=== PATIENT | female | born 1985 | race Hispanic/Latino ===

== ENCOUNTER 2017-11-23 08:38 | Inpatient (IN) | payer BC ==
--- OUTSIDE RECORDS SUMMARY | 2017-11-23 08:43 | XMS REPORT ---
:1985 Author Organization e[employer] Care Team Providers Name Role Phone Daljit Briscoe Provider Role Unavailable Allergies No Known Allergies Problems Problem Type Condition Code Onset Dates Condition Status Assessment Encounter for care or examination of Z39.1 Active lactating mother Problem Supervision of high risk O09.91 Active in first trimester Assessment Encounter for care of Z39.1 Active lactating mother Problem Surrogate in third Z33.3 Active trimester Problem Supervision of high risk O09.93 Active in third trimester Problem Encounter for care or examination of Z39.1 Active lactating mother Problem Subacute vaginitis N76.1 Active Problem Encounter for care in first Z34.01 Active trimester of first Problem Supervision of high risk O09.92 Active in second trimester Problem Encounter for supervision of other Z34.82 Active normal , second trimester Medications Medication Code System Code Instructions Start Date End Date Status Dosage Breast Pump [facility] 46234915216 - October 19, Active as directed 2018 Results No Known Results Summary Purpose [email or web address] Submission
--- OUTSIDE RECORDS SUMMARY | 2017-11-23 08:43 | XMS REPORT ---
:1985 Author Organization [employer] Care Team Providers Name Role Phone Daljit Briscoe Provider Role Unavailable Allergies No Known Allergies Problems Problem Type Condition Code Onset Dates Condition Status Assessment Surrogate in third Z33.3 Active trimester Assessment Supervision of high risk O09.93 Active in third trimester Problem Surrogate in third Z33.3 Active trimester Problem Supervision of high risk O09.92 Active in second trimester Problem Supervision of high risk O09.93 Active in third trimester Problem Encounter for care in first Z34.01 Active trimester of first Problem Supervision of high risk O09.91 Active in first trimester Problem Encounter for supervision of other Z34.82 Active normal , second trimester Problem Subacute vaginitis N76.1 Active Medications Medication Code Code Instructions Start End Status Dosage System Date Date Diflucan NDC 86762528261 150 MG Orally Active 1 tablet Once a day DHA NDC 0 Active not defined Diflucan NDC 71253262691 150 MG Orally Active 1 tablet Once a day Breast Pump ND 13136039292 - Active as directed Results No Known Results Summary Purpose [employer]ClinicalWorks Submission
--- OUTSIDE RECORDS SUMMARY | 2017-11-23 08:43 | XMS REPORT ---
:1985 Author Organization [employer] Care Team Providers Name Role Phone Daljit Briscoe Provider Role Unavailable Allergies, Adverse Reactions, Alerts Substance Reaction Event Type N.K.D.A. Info Not Available Non Drug Allergy Problems Problem Type Condition Code Onset Dates Condition Status Assessment Subacute vaginitis N76.1 Active Problem Surrogate in first Z33.3 Active trimester Problem Encounter for care in first Z34.01 Active trimester of first Problem Subacute vaginitis N76.1 Active Assessment Surrogate in first Z33.3 Active trimester Assessment Supervision of high risk O09.91 Active in first trimester Problem Supervision of high risk O09.91 Active in first trimester Assessment Encounter for care in first Z34.01 Active trimester of first Medications Medication Code Code Instructions Start End Date Status Dosage System Date Diflucan NDC 49581777802 150 MG Orally Active 1 tablet Once a day DHA NDC 0 Active not defined Results No Known Results Summary Purpose [employer]ClinicalWorks Submission
--- OUTSIDE RECORDS SUMMARY | 2017-11-23 08:43 | XMS REPORT ---
:1985 Author Organization [employer] Care Team Providers Name Role Phone Daljit Briscoe Provider Role Unavailable Allergies, Adverse Reactions, Alerts Substance Reaction Event Type N.K.D.A. Info Not Available Non Drug Allergy Problems Problem Type Condition Code Onset Dates Condition Status Assessment Surrogate in second Z33.3 Active trimester Assessment Supervision of high risk O09.92 Active in second trimester Problem Encounter for supervision of other Z34.82 Active normal , second trimester Problem Surrogate in second Z33.3 Active trimester Problem Supervision of high risk O09.92 Active in second trimester Problem Supervision of high risk O09.91 Active in first trimester Assessment Encounter for supervision of other Z34.82 Active normal , second trimester Problem Subacute vaginitis N76.1 Active Problem Encounter for care in first Z34.01 Active trimester of first Medications Medication Code Code Instructions Start End Status Dosage System Date Date Breast Pump [facility] 88536601873 - August 27, Active as directed 2017 Diflucan [facility] 05339266654 150 MG Orally Active 1 tablet Once a day DHA NDC 0 Active not defined Results No Known Results Summary Purpose [employer]ClinicalWorks Submission
--- OUTSIDE RECORDS SUMMARY | 2017-11-23 08:43 | XMS REPORT ---
[...] Date Status Dosage System Date Diflucan NDC 27582546837 150 MG Orally Active 1 tablet Once a day DHA NDC 0 Active not defined Results No Known Results Summary Purpose [employer]ClinicalWorks Submission
--- OUTSIDE RECORDS SUMMARY | 2017-11-23 08:43 | XMS REPORT ---
:1985 Author Organization [employer] Care Team Providers Name Role Phone Daljit Briscoe Provider Role Unavailable Allergies No Known Allergies Problems Problem Type Condition Code Onset Dates Condition Status Assessment Supervision of high risk O09.93 Active in third trimester Assessment Surrogate in third Z33.3 Active trimester Problem Surrogate in third Z33.3 Active [...] Status Dosage System Date Date Breast Pump NDC 03355430375 - Active as directed DHA NDC 0 Active not defined Diflucan NDC 87835800905 150 MG Orally Active 1 tablet Once a day Diflucan NDC 45693274524 150 MG Orally Active 1 tablet Once a day Results No Known Results Summary Purpose eClinicalWorks Submission
--- OUTSIDE RECORDS SUMMARY | 2017-11-23 08:43 | XMS REPORT ---
:1985 Author Organization eClinicalWorks Care Team Providers Name Role Phone Daljit Briscoe Provider Role Unavailable Allergies No Known Allergies Problems Problem Type Condition Code Onset Dates Condition Status Problem Encounter for care in first Z34.01 Active trimester of first Problem Supervision of high risk O09.91 Active in first trimester Assessment Surrogate in third Z33.3 Active trimester Assessment Supervision of high risk O09.93 Active in third trimester Assessment Need for Tdap vaccination Z23 Active Problem Need for Tdap vaccination Z23 Active Problem Surrogate in third Z33.3 Active trimester Problem Encounter for care or examination of Z39.1 Active lactating mother Problem Encounter for supervision of other Z34.82 Active normal , second trimester Problem Subacute vaginitis N76.1 Active Problem Supervision of high risk O09.93 Active in third trimester Problem Supervision of high risk O09.92 Active in second trimester Medications Medication Code Code Instructions Start End Status Dosage System Date Date DHA NDC 0 Active not defined Diflucan NDC 16926225841 150 MG Orally Active 1 tablet Once a day Diflucan NDC 97783102582 150 MG Orally Active 1 tablet Once a day Breast Pump NDC 76745729166 - October 19 Active as directed 2018 Breast Pump NDC 76565579891 - Active as directed Results No Known Results Immunizations Vaccine Administration Date TDAP > 7 Years-Adacel October 27, 2017 Summary Purpose eClinicalWorks Submission
--- OUTSIDE RECORDS SUMMARY | 2017-11-23 08:43 | XMS REPORT ---
:1985 Author Organization eClinicalWorks Care Team Providers Name Role Phone Daljit Briscoe Provider Role Unavailable Allergies No Known Allergies Problems Problem Type Condition Code Onset Dates Condition Status Problem Encounter for supervision of other Z34.82 Active normal , second trimester Problem Surrogate in second Z33.3 Active trimester Problem Supervision of high risk O09.92 Active in second trimester Problem Supervision of high risk O09.91 Active in first trimester Problem Subacute vaginitis N76.1 Active Problem Encounter for care in first Z34.01 Active trimester of first Medications Medication Code System Code Instructions Start Date End Date Status Dosage Diflucan [facility] 95870913343 150 MG Orally Active 1 tablet Once a day Results No Known Results Summary Purpose eClinicalWorks Submission
--- OUTSIDE RECORDS SUMMARY | 2017-11-23 08:44 | XMS REPORT ---
:1985 Author Organization eClinicalWorks Care Team Providers Name Role Phone Daljit Briscoe Provider Role Unavailable Allergies, Adverse Reactions, Alerts Substance Reaction Event Type N.K.D.A. Info Not Available Non Drug Allergy Problems Problem Type Condition Code Onset Dates Condition Status Problem Encounter for care in Z34.01 Active first trimester of first Problem Subacute vaginitis N76.1 Active Problem Supervision of high risk O09.91 Active in first trimester Problem Encounter for care or examination Z39.1 Active of lactating mother Problem Need for Tdap vaccination Z23 Active Problem Breech presentation, single or O32.1XX0 Active unspecified fetus Problem Supervision of high risk O09.92 Active in second trimester Problem Encounter for supervision of other Z34.82 Active normal , second trimester Problem Supervision of high risk O09.93 Active in third trimester Problem Surrogate in third Z33.3 Active trimester Assessment Breech presentation, single or O32.1XX0 Active unspecified fetus Assessment Surrogate in third Z33.3 Active trimester Assessment Supervision of high risk O09.93 Active in third trimester Medications Medication Code Code Instructions Start End Status Dosage System Date Date Diflucan NDC 78143767619 150 MG Orally Active 1 tablet Once a day DHA NDC 0 Active not defined Breast Pump NDC 35558074899 - Active as directed Breast Pump NDC 38437265183 - October 19, Active as directed 2017 Diflucan NDC 18803991151 150 MG Orally Active 1 tablet Once a day Results No Known Results Summary Purpose eClinicalWorks Submission
--- OUTSIDE RECORDS SUMMARY | 2017-11-23 08:44 | XMS REPORT ---
[...] risk O09.93 Active in third trimester Problem Need for Tdap vaccination Z23 Active [...] Status Dosage System Date Date Diflucan NDC 91292974411 150 MG Orally Active 1 tablet Once a day Breast Pump NDC 33930642658 - Active as directed DHA NDC 0 Active not defined Diflucan NDC 95939832970 150 MG Orally Active 1 tablet Once a day Breast Pump NDC 54935977717 - October 19 Active as directed 2017 Results No Known Results Summary Purpose eClinicalWorks Submission
--- OUTSIDE RECORDS SUMMARY | 2017-11-23 08:44 | XMS REPORT ---
[...] Status Dosage System Date Date Diflucan NDC 42731196255 150 MG Orally Active 1 tablet Once a day Breast Pump NDC 90737580779 - October 19, Active as directed 2017 DHA NDC 0 Active not defined Diflucan NDC 45903960148 150 MG Orally Active 1 tablet Once a day Breast Pump NDC 98816958957 - Active as directed Results No Known Results Summary Purpose eClinicalWorks Submission
[2017-11-23] MEDS ORDERED: Ringers Lactate 1,000 ML IV PRN (09:59)
[2017-11-23] MEDS ORDERED: Ringers Lactate 1,000 ML IV SCH (10:00)
[2017-11-23] MEDS ORDERED: NA CIT/CITRIC AC 30 ML ORAL UDC PO ONE (10:37)
[2017-11-23 10:40] LABS: RPR Titer ND
[2017-11-23 10:45] LABS: Absolute Monocytes 0.7 K/uL (0.1-1.3); Basophils % 0.5 % (0-1.3); Eosinophils % 0.5 % (0-4.4); Hematocrit 41.3 % (36.0-45.0); Lymphocytes % 22.4 % (15.3-44.8); MCH 31.5 pg (27.0-35.0); MPV 9.5 fL (7.6-11.3); RBC Red Blood Cell Count 4.54 M/uL (3.86-4.86)
[2017-11-23 10:49] LABS: Urine Appearance CLEAR; Urine Bilirubin NEGATIVE (NEG); Urine Blood NEGATIVE (NEG); Urine Color YELLOW; Urine Glucose NEGATIVE (NEG); Urine Protein NEGATIVE (NEG); Urine Urobilinogen 0.2 mg/dL (0.2-1.0)
--- NOTE | 2017-11-23 10:49 | RAD REPORT ---
EXAM DESCRIPTION: US - OB Limited - 11/23/2017 9:47 am CLINICAL HISTORY: COMPARISON: None FINDINGS: Limited examination was performed to assess amniotic fluid volume and presentation Presentation is breech. Cardiac activity 154 beats per minute Amniotic fluid index 3.6 centimeters. The largest pocket of fluid 1.6 centimeters IMPRESSION: Breech presentation The amniotic fluid index 3.6 centimeters compatible with oligohydramnios.
[2017-11-23 10:59] LABS: Urine Microscopic Reflex ORDER UMIC
[2017-11-23] MEDS ORDERED: CEFAZOLIN/SWI 2gm 2 GM/20 ML SYR IV SCH (11:00)
[2017-11-23] MEDS ORDERED: METOCLOPRAMIDE 10 MG/2mL INJ IV SCH (11:00)
[2017-11-23] MEDS ORDERED: FAMOTIDINE 20 MG/2 ML VIAL IV ONE (11:04)
[2017-11-23 11:10] LABS: Urine Bacteria 20-50 /HPF (<20); Urine Culture Reflex Order REFLEXED; Urine Mucus 1+ /HPF (NONE SEEN); Urine RBC <5 /HPF (NONE SEEN)
[2017-11-23 11:11] LABS: Urine Yeast PRESENT (NONE SEEN); Urine Yeast with Hyphae PRESENT
[2017-11-23] MEDS ORDERED: METHYLERGONOVINE 0.2MG/ML AMP IM ONE (11:27)
[2017-11-23] MEDS ORDERED: CARBOPROST TROME 250 MCG/ML IM ONE (11:27)
[2017-11-23] MEDS ORDERED: MORPHINE SULFATE/PF 1 MG/ML (10 ML AMP) ONE (11:37)
[2017-11-23] MEDS ORDERED: BUPIVACAINE 0.75% (PF) 2 ML SP ONE (11:58)
[2017-11-23] MEDS ORDERED: EPHEDRINE SULF 50 MG/ML SYR ONE (11:58)
[2017-11-23] MEDS ORDERED: NS 0.9% VIAL 10 ML ONE (11:59)
[2017-11-23] MEDS ORDERED: OXYTOCIN 10 UNIT/ML ML IV ONE ×2 (12:09)
[2017-11-23] MEDS ORDERED: MIDAZOLAM HCL 2 MG/2 ML INJ ONE (12:17)
[2017-11-23] MEDS ORDERED: METHYLERGONOVINE 0.2 MG TAB PO PRN (12:45)
[2017-11-23] MEDS ORDERED: ACETAMINOPHEN 500 MG TAB PO PRN (12:45)
[2017-11-23] MEDS ORDERED: ONDANSETRON 4 MG/2 ML VIAL IV PRN (12:45)
[2017-11-23] MEDS ORDERED: Oxycodone HCl/Acetaminophen 1 TAB TAB PO PRN ×2 (12:45)
[2017-11-23] MEDS ORDERED: DOCUSATE NA/SENNA CONC 1 TAB PO PRN (12:45)
[2017-11-23] MEDS ORDERED: BISACODYL 10 MG RECTAL SUPP RECT PRN (12:45)
[2017-11-23] MEDS ORDERED: ONDANSETRON 4 MG (ODT) TAB PO PRN (12:45)
[2017-11-23] MEDS ORDERED: KETOROLAC 30 MG/ML INJ IV PRN (12:46)
--- NOTE | 2017-11-23 16:40 | P.OP ---
Travel Agent: Lori Dunne Preoperative diagnosis: Term , breech presentation, oligohydramnios Postoperative diagnosis: Same Primary procedure: Primary low-transverse section Anesthesia: Spinal Estimated blood loss: 800 cc Specimen: Cord blood, placenta Findings: Viable female in alex breech presentation Operative Technique: The patient was taken to the operating room where her spinal anesthesia was placed. She was prepped and draped in the usual fashion for the procedure. After adequate spinal level was confirmed, the scalpel was utilized to make a transverse incision in the patient's lower abdominal wall. This incision was carried down to the level of the fascia, which was also transversely incised. After adequate hemostasis, the fascia was bluntly and sharply up from the underlying rectus muscle. The rectus muscle was in midline exposing the peritoneum. The peritoneum was carefully grasped and elevated with hemostats. It was entered in an up and down fashion with Metzenbaum scissors. The bladder blade was placed in the lower pole of the incision to protect the bladder. Bladder flap was created. The uterus was palpated and inspected. A thin lower uterine segment was noted. Breech presentation was confirmed. The scalpel was then utilized to make a transverse or Gordon incision in the lower uterine wall. Clear fluid was noted upon entering into the amniotic space. Fundal pressure was applied to help bring the hips had a incision. Once this was noted to not be successful attention was then turned to the GB which were brought through the incision gently once the feet were brought through the was then delivered to the level of the scapula. The arms were then swept across the chest and brought through the incision. The head was then gently removed through the incision. She had spontaneous respirations. She was given bulb suctioning for clear fluid. Her cord was clamped and cut and she was delivered off the field awaiting nursery nurse. The baby girl was subsequently signed Apgars of 9 at one minute and 9 at five minutes. Her weight was found to be 6 pounds and 1 ounce. Delivery time was 12:05 p.m. The placenta was manually extracted from the endometrial cavity. A ring clamp and two Allis clamps were placed around the margin of the uterine incision for hemostasis. The uterus was delivered up into the operative field. The endometrial cavity was swiped clean with a moist laparotomy pad. The uterine incision was then closed in a two-layered fashion with 0 Vicryl suture, the first layer interlocking and the second layer imbricating. Two additional stitches of 1-0 Vicryl suture were utilized for hemostasis. The uterine incision was noted to be hemostatic upon closure. Bladder flap was reapproximated with 3 O Vicryl. The uterus was rotated forward, normal tubes and ovaries were noted on both sides. The uterus was then returned to its normal position of the abdominal cavity. The sponge and instrument count was performed for the first time at this point and found to be correct. A final check of the uterine incision confirmed hemostasis. The rectus muscle was stabilized across the midline with two simple stitches of 0 Vicryl suture. The subcutaneous tissue was then exposed, and the fascia closed with two running lengths of 0 Vicryl suture, beginning in lateral margins and overlapping the midline. The subcutaneous tissue was then irrigated and inspected. No active bleeding was noted. It was approximated with interrupted 2 0 plain gut. The skin was then approximated with 3 O Vicryl on a Trevor needle . The incision was cleansed and sterilely dressed. The patient was transferred to the recovery room in stable condition. The estimated blood loss through the procedure was 800 mL. The sponge and instrument counts were performed two more times during closure and found to be correct each time. Complications: None Drain(s): Urinary catheter Transferred to: Recovery Room Condition: Good
[2017-11-23] MEDS ORDERED: Ringers Lactate 1,000 ML IV ONE (21:24)
[2017-11-23 21:48] LABS: RPR (Rapid Plasma Reagin) NON-REACT (NON-REACT)
--- NOTE | 2017-11-23 22:54 | HP ---
Date of Admission: 11/23/2017 History Of Present Illness: Stefanie is a 31-year-old, 3, para 2-0-0-2, who presents at 38 weeks' gestation with high-risk . This is a surrogate and is now complicated by o ligohydramnios and breech presentation. The patient has been obtaining care with me and is also being followed by [facility] specialist. The patient was seen in the office last week, at which time I performed an ultrasound to confirm presentation was still breech. She was recommended by [facility] to not having version performed due to the positioning of the placenta and the umbilical cord. Last week, the amniotic fluid index had dropped down to 9 cm, and the placenta appeared to be a grade-3. Theref ore, I have recommended that she repeat an ultrasound today and to have an NST performed. NST was re active; however, the ultrasound performed today at the hospital revealed an LALY of 3.6 cm with the la rgest pocket being 1.6 cm. Due to this finding of oligohydramnios, term , and breech presen tation, I informed the patient that we are going to move forward with a primary section. Th e patient voices understanding. She denies any vaginal bleeding, no pelvic pain, no leakage of fluid , and reports that movements are present. See record for further details. Past Medical History: Negative. Past Surgical History: Includes hernia repair. Obstetric History: Includes 2 prior vaginal births. Gynecologic History: Includes normal Pap smears, regular menstrual cycles. Social History: She is . Works as a nurse. Denies tobacco, alcohol, or drug use. Physical Examination: Vital Signs: On admission, blood pressure is 120/75, pulse of 82, respirations 18. She is afebrile. General: Resting comfortably in bed, with family at her bedside. Head and Neck: Normocephalic, atraumatic. Neck is supple. Abdomen: Gravid. Extremities: Bilateral lower extremities; no clubbing, cyanosis, or edema. Vaginal: Normal external female genitalia. Internal examination is deferred at this time; 1 cm in t he office last week. Laboratory Data: On admission, white blood cell count 8.8, hemoglobin 14.3, hematocrit 41.3, and kamala telet count is 209. No protein in her urine. Glucose screen was negative. She is GBS negative. HI V negative. Assessment And Plan: Stefanie is a 31-year-old, 3, para 2-0-0-2, at 38 weeks' gestation, wh o presents with a high-risk due to it being a surrogate , with breech presentation , and now found to have oligohydramnios. Plan is to give routine preoperative medications. Anesthes ia has been informed for spinal placement, and we will perform a primary section. Routine p ostoperative orders will be placed. SYDNEY Voice ID: [id number]
[2017-11-24] MEDS: IBUPROFEN 200 MG TAB PO PRN ×3 (04:28→20:30)
[2017-11-24 05:09] LABS: Absolute Lymphocytes (CBC) 2.2 K/uL (0.7-4.9); Absolute Monocytes 1.2 K/uL (0.1-1.3); Absolute Neutrophil 12.9 K/uL (1.8-8.0); Basophils % 0.4 % (0-1.3); Eosinophils % 0.1 % (0-4.4); Hematocrit 35.5 % (36.0-45.0); Lymphocytes % 13.5 % (15.3-44.8); MCH 32.2 pg (27.0-35.0); MCV 90.8 fL (80-100); MPV 9.7 fL (7.6-11.3); Monocytes % 7.5 % (3.3-12.3); RBC Red Blood Cell Count 3.91 M/uL (3.86-4.86)
[2017-11-24] MEDS ORDERED: FAMOTIDINE 20 MG/2 ML VIAL IV ONE (10:39)
--- NOTE | 2017-11-24 20:58 | P.PN ---
Date of Service: 11/24/17 The patient is postop day 1 from a primary section. She is doing well. She is tolerating diet. Her pain is well controlled. She is afebrile. She has no complaints today. Vital sign stable General: Resting in bed no distress Head and neck: Normocephalic atraumatic, supple Respiratory: Symmetric nonlabored breathing Abdomen: Soft, mildly distended, mildly tender. Incision clean dry and intact Bilateral lower extremities: No clubbing cyanosis or edema. Assessment and plan patient is postop day 1 after primary section she is doing well. Pain is well controlled. Discontinue IV discontinue Koch catheter. Encourage patient to ambulate. Possible discharge home tomorrow.
[2017-11-25] MEDS: IBUPROFEN 200 MG TAB PO PRN (04:15)
[2017-11-25 07:35] VITALS: BMI 29.7
[2017-11-25] MEDS ORDERED: SIMETHICONE 80 MG TAB PO ONE (09:54)
[2017-11-25 13:05] LABS: HBsAG Nonreactive (Nonreactive)
[2017-11-25 13:31] VITALS: BP 134/86; TEMP 97.7
== END 2017-11-25 13:55 | disposition home or self-care (01) | DRG 765 ==
LOC: L&D 08:38 → 2ND-WC 09:52
PROVIDERS: ADMIT Student in an Organized Health Care Education/Training Program; ATTEND Student in an Organized Health Care Education/Training Program
PROC: 10D00Z1 Extraction of Products of Conception, Low, Open Approach (ICD-10-PCS; principal; 2017-11-23 11:30)
DX: O32.1XX0 Maternal care for breech presentation, not applicable or unspecified (principal); O41.03X0 Oligohydramnios, third trimester, not applicable or unspecified; Z3A.38 38 weeks gestation of pregnancy; Z37.0 Single live birth; Z33.3 Pregnant state, gestational carrier
CPT/HCPCS: 36415; 76815; 81003; 81015; 85025; 86592; 86900; 86901; 87086; 87088; 87340; 88307; J0690; J2210; J2250; J2590; J2765